=== PATIENT | female | born 1960 | race African-American/Black ===

== ENCOUNTER 2019-06-02 09:58 | Emergency (ER) | payer SELFPAY ==
[2019-06-02] MEDS ORDERED: Iopamidol-370 76% 500 ML 1 ML ONE (11:04)
[2019-06-02 11:35] LABS: #Basophils 0.1 thou/uL (0.0-0.2); #Eosinphils 0.3 thou/uL (0.0-0.7); #Monocytes 0.8 thou/uL (0.11-0.59); #Neutrophils 4.7 thou/uL (1.40-6.50); %Basophils 0.5 % (0.0-1.0); %Eosinophils 3.3 % (0.0-10.0); %Lymphocytes 40.4 % (21.0-51.0); %Monocytes 8.5 % (0.0-10.0); %Neutrophils 47.3 % (42.0-75.0); Hemoglobin 13.3 g/dL (12.0-16.0); Mean Corpuscular HGB CONC 33.5 g/dL (32.0-36.0); Mean Corpuscular Hemoglobin 24.6 pg (27.0-31.0); Mean Corpuscular Volume 73.5 fL (78.0-98.0); Mean Platelet Volume 9.5 fL (7.4-10.4); Platelet Count 296 thou/uL (130-400); RBC Distribution Width 14.2 % (11.5-14.5); Red Blood Cell (RBC) Count 5.41 mill/uL (4.20-5.40); White Blood Cell (WBC) Count 9.9 thou/uL (4.8-10.8)
[2019-06-02 11:47] LABS: Bacteria/HPF None Seen HPF (None Seen); Bilirubin Negative (Negative); Blood, Urine Negative (Negative); Clarity Clear (Clear); Glucose, Urine (Dipstick) Normal (Negative); Leukocyte 250 Leu/uL (Negative); Nitrite Negative (Negative); Protein, Urine (Dipstick) 20 mg/dL (Neg-Trace); RBC/HPF 0-3 HPF (0-3); Squamous Epithelial 0-3 HPF (0-3); Urobilinogen Normal mg/dL (Less than 2)
[2019-06-02 11:49] LABS: MDiff Complete? YES; Microcytosis SLIGHT = 6-15 cells (100X) (0-5/hpf); Platelet Morphology Comment Appears Adequate
[2019-06-02 11:55] LABS: ALT (SGPT) 25 U/L (8-55); AST (SGOT) 19 U/L (5-34); Albumin 4.2 g/dL (3.5-5.0); Alkaline Phosphatase 89 U/L (40-110); Anion Gap 11 mmol/L (10-20); BUN (Urea Nitrogen) 11 mg/dL (9.8-20.1); Bilirubin, Total 0.2 mg/dL (0.2-1.2); Calc. Creatinine Clearance 0 mL/min (70-130); Calcium 9.9 mg/dL (7.8-10.44); Carbon Dioxide 32 mmol/L (22-29); Chloride 102 mmol/L (98-107); Estimated GFR-MDRD Greater than 90; Globulin 4.1 g/dL (2.4-3.5); Glucose 84 mg/dL (70-105); Potassium 3.9 mmol/L (3.5-5.1); Protein, Total 8.3 g/dL (6.0-8.3); Sodium 141 mmol/L (136-145)
[2019-06-02 12:15] LABS: HIV (1/2) Antibody/Antigen Non-Reactive (NonReactive); HIV 1/2 INDEX 0.12 S/CO (<1.00)
--- NOTE | 2019-06-02 13:11 | CT ---
CT neck soft tissues with contrast: DATE: 06/02/2019 HISTORY: 58-year-old female with neck pain FINDINGS: No high-grade cervical spondylosis. No high-grade central spinal canal stenosis or high-grade neural foraminal stenosis at any level. Symmetrical moderate-severe enlargement of palatine tonsils, lingual tonsil, and adenoids. Enlarged bilateral level 2 and level 3 cervical lymph nodes, without necrosis. No focal abscess identified. Other than the lymphadenopathy, no major pathology identified involving carotid, retropharyngeal, per ivertebral, parapharyngeal, parotid, submandibular, or buckle, spaces. Maxillary and sphenoid sinuses, and bilateral middle ear cavities, are grossly clear. There are bilateral thyroid nodules, right larger than left. IMPRESSION: 1. Diffuse hyperplasia of Waldeyer's ring. 2. Bilateral level 2 and level 3 reactive cervical lymphadenopathy. 3. No abscess.
[2019-06-02] MEDS ORDERED: Dexamethasone 10 MG/ML VIAL ONE (13:53)
== END 2019-06-02 15:45 | disposition home or self-care (01) ==
LOC: ERS 09:58
DX: L08.9 Local infection of the skin and subcutaneous tissue, unspecified (principal); R59.0 Localized enlarged lymph nodes; I10 Essential (primary) hypertension; Z79.899 Other long term (current) drug therapy
CPT/HCPCS: 70491; 80053; 81003; 81015; 85025; 87040; 87070; 87077; 87149; 87186; 87205; 87389; 96361; 96365; 96366; 96375; J1100; J3370; Q9967